=== PATIENT | female | born 1965 | race Two or more races ===

== ENCOUNTER 2018-08-13 11:44 | Inpatient (IN) | payer OTHER ==
[~2018-08-13] VITALS: Ht 167.6 cm; Wt 61.1 kg
--- NOTE | 2018-08-13 11:44 | NUR ---
BIB SELF W C/O FLU-LIKE SYMPTOMS: COUGH, HEADACHE, NAUSEA AND VOMITING X 10 DAYS. TO ER BED 2, HOOKED TO MONITOR, AWAITING MD WOO.
--- NOTE | 2018-08-13 12:28 | NUR ---
MAGDA STAFFORD AT BEDSIDE
[2018-08-13] MEDS ORDERED: HYDROMORPHONE INJ 0.5 MG/0.5 ML SYRINGE ONE (12:39)
[2018-08-13] MEDS ORDERED: ONDANSETRON HCL/PF 4 MG/2 ML VIAL ONE ×2 (12:39→15:05)
[2018-08-13 12:47] LABS: BASOPHILS % (AUTO) 0.2 % (0.0-2.0); EOSINOPHILS % (AUTO) 0.4 % (0.0-6.0); HEMATOCRIT 39 % (33-45); HEMOGLOBIN 13.1 g/dL (11.5-14.8); LYMPHOCYTES # (AUTO) 1.1 /CMM (0.8-4.8); LYMPHOCYTES % (AUTO) 16.1 % (20.0-44.0); MEAN CORPUSCULAR HGB CONC 34 g/dl (31.0-36.0); MEAN CORPUSCULAR VOLUME 91 fL (82-100); MONOCYTES # (AUTO) 0.5 /CMM (0.1-1.30); MONOCYTES % (AUTO) 7.8 % (2.0-12.0); NEUTROPHILS # (AUTO) 5.2 /CMM (1.8-8.9); NEUTROPHILS % (AUTO) 75.5 % (43.0-81.0); PLATELET COUNT (AUTO) 237 /CMM (150-450); RED BLOOD CELL COUNT(AUTO) 4.29 MIL/uL (4.0-5.2); WHITE BLOOD COUNT (AUTO) 6.8 K/uL (4.3-11.0)
[2018-08-13] MEDS ORDERED: ONDANSETRON HCL/PF 4 MG/2 ML VIAL IVP ONE ×2 (13:00→15:30)
[2018-08-13] MEDS ORDERED: IV NS 0.9% 1,000 ML BAG IV ONE ×2 (13:00→15:30)
[2018-08-13] MEDS ORDERED: HYDROMORPHONE INJ 2 MG/ML DISP.SYRIN IV ONE (13:00)
[2018-08-13 13:01] LABS: CALCIUM, SERUM 9.5 mg/dL (8.5-10.1); POTASSIUM 3.9 mmol/L (3.5-5.1)
[2018-08-13 13:04] LABS: ALBUMIN 3.3 g/dL (3.4-5.0); BILIRUBIN,DIRECT 0.1 mg/dL (0.0-0.2); BILIRUBIN,TOTAL 0.7 mg/dL (0.2-1.0); TOTAL PROTEIN, SERUM 7.6 g/dL (6.4-8.2)
--- NOTE | 2018-08-13 14:00 | NUR ---
PT BACK FROM CT ABDOMEN PELVIS
[2018-08-13 14:43] LABS: APPEARANCE,URINE Clear (CLEAR); BILIRUBIN,URINE MODERATE (NEGATIVE); BLOOD, URINE Negative Ery/uL (NEGATIVE); KETONES,URINE >=160 (NEGATIVE); LEUKOCYTE ESTERASE ,URINE Negative (NEGATIVE); NITRITE, URINE Negative (NEGATIVE); PH,URINE 5.5 (5.0-8.0); PROTEIN,URINE 100 mg/dl (NEGATIVE); UGLUCOSE Negative (NEGATIVE); UROBILINOGEN,URINE 0.2 EU/dL (0.2)
[2018-08-13 14:44] LABS: COLOR,URINE DARK YELLOW (YELLOW)
[2018-08-13 14:56] LABS: BACTERIA,URINE Few /HPF (None Seen); RBC,URINE 0-2 /HPF (0-2); SQUAMOUS EPITHELIAL CELL,UR Few /HPF (None Seen); WBC,URINE 0-4 /HPF (0-3)
--- NOTE | 2018-08-13 15:00 | NUR ---
PT WITH EPISODE OF VOMITING, MADE PA AWARE
--- NOTE | 2018-08-13 15:12 | NUR ---
OUT FOR CT HEAD
[2018-08-13] MEDS ORDERED: NERA40TA PO (16:33)
[2018-08-13] MEDS ORDERED: HALOPERIDOL LACTATE INJ 5 MG/ML VIAL IM ONE (17:00)
[2018-08-13] MEDS ORDERED: HALOPERIDOL LACTATE INJ 5 MG/ML VIAL ONE (17:05)
--- NOTE | 2018-08-13 18:31 | NUR ---
DR. DINORAH GILES
--- NOTE | 2018-08-13 18:47 | NUR ---
GOT BED 320-1
--- NOTE | 2018-08-13 18:56 | NUR ---
REPORT GIVEN TO KANDACE GILBERT OF [facility] FOR [facility]
[2018-08-13] MEDS ORDERED: Z GUARD REMEDY 2 OZ OINT TP PRN (19:30)
[2018-08-13] MEDS ORDERED: HYDROCODONE/APAP 5/325MG 1 EACH TABLET PO PRN (19:30)
[2018-08-13] MEDS ORDERED: MAGNESIUM HYDROXIDE 30 ML UDC PO PRN (19:30)
[2018-08-13] MEDS ORDERED: ONDANSETRON HCL/PF 4 MG/2 ML VIAL IVP PRN (19:30)
[2018-08-13] MEDS ORDERED: MAG HYDROX/AL HYDROX/SIMETH 30 ML UDC PO PRN (19:30)
[2018-08-13] MEDS ORDERED: ZOLPIDEM TARTRATE 5 MG TABLET PO PRN (19:30)
[2018-08-13] MEDS ORDERED: ACETAMINOPHEN 325 MG TABLET PO PRN (19:30)
[2018-08-13 19:45] VITALS: BP 143/77
--- NOTE | 2018-08-13 19:45 | NUR ---
RECEIVED PATIENT FROM ER FOR DX INTRACTABLE VOMITING/ HX OF BREAST CANCER. AO X 3, ABLE TO MAKE NEEDS KNOWN. NO ACUTE DISTRESS NOTED. DENIES ANY PAIN AT THIS TIME. DENIES N/V AT THIS TIME. PRODUCTIVE COUGH NOTED WITH SCANT SPUTUM. AFEBRILE. IV SITE PATENT, INTACT; FLUSHED. SKIN INTACT. SAFETY REMINDERS GIVEN. ORIENTATION TO ROOM AND UNIT GIVEN. ON LOW BED WITH BILATERAL UPPER SIDE RAILS UP. CALL COVARRUBIAS WITHIN EASY REACH. WILL CONTINUE TO MONITOR.
[2018-08-13] MEDS: PANTOPRAZOLE 40 MG VIAL IV SCH (20:20)
[2018-08-13] MEDS: IV D5/0.45 NACL 1,000 ML IV PRN (20:21)
[2018-08-13] MEDS: GUAIFENESIN/D-METHORPHAN HB 5 ML UDC PO PRN (23:49)
--- NOTE | 2018-08-14 06:00 | NUR ---
PATIENT ASLEEP, EASILY AROUSABLE. RESPIRATIONS EVEN. NO SIGNS OF PAIN NOTED. DUE MED GIVEN WITH NO ASE NOTED. GUAIFENESIN GIVEN EARLIER FOR COUGH WITH NO RELIEF. IVF INFUSING ORDERED. NEEDS ATTENDED. SAFETY PRECAUTIONS AND COMFORT MEASURES IN PLACE. WILL GIVE REPORT TO DAY SHIFT FOR CONTINUITY OF CARE.
--- NOTE | 2018-08-14 07:15 | NUR ---
MS RN Opening Notes 320-1 Patient awake, resting in bed. Alert and oriented x4. No complaints of nausea, vomitting or pain at this time. Respirations even and unlabored on room air, no acute distress noted. Peripheral IV to the right AC 20 gauge, intact, patent and infusing D5 1/2 NS at 75 mL/hr. Productive cough noted, treating with PRN medications. Full liquid diet at this time, tolerating okay. Updated patient on current plan of care and safety measures. Safety and fall precautions in place: bed in lowest and locked position, side rails up x2, bed alarm on, call light and personal possessions within reach. Patient verbalized understanding. Will continue to monitor and intervene as needed.
[2018-08-14 07:33] LABS: BASOPHILS % (AUTO) 0.1 % (0.0-2.0); EOSINOPHILS % (AUTO) 0.4 % (0.0-6.0); HEMATOCRIT 34 % (33-45); HEMOGLOBIN 11.4 g/dL (11.5-14.8); LYMPHOCYTES # (AUTO) 1.1 /CMM (0.8-4.8); LYMPHOCYTES % (AUTO) 16.8 % (20.0-44.0); MEAN CORPUSCULAR HGB CONC 34 g/dl (31.0-36.0); MEAN CORPUSCULAR VOLUME 90 fL (82-100); MONOCYTES # (AUTO) 0.7 /CMM (0.1-1.30); MONOCYTES % (AUTO) 11.1 % (2.0-12.0); NEUTROPHILS # (AUTO) 4.5 /CMM (1.8-8.9); NEUTROPHILS % (AUTO) 71.6 % (43.0-81.0); PLATELET COUNT (AUTO) 240 /CMM (150-450); RED BLOOD CELL COUNT(AUTO) 3.78 MIL/uL (4.0-5.2); WHITE BLOOD COUNT (AUTO) 6.3 K/uL (4.3-11.0)
[2018-08-14 07:48] LABS: THYROID STIMULATING HORMONE 1.168 uIU/mL (0.358-3.74)
[2018-08-14 07:59] LABS: CALCIUM, SERUM 8.7 mg/dL (8.5-10.1); CREATININE 0.9 mg/dL (0.6-1.3); MAGNESIUM 1.7 mg/dL (1.8-2.4); POTASSIUM 3.7 mmol/L (3.5-5.1)
[2018-08-14] MEDS: PANTOPRAZOLE 40 MG VIAL IV SCH (08:14)
[2018-08-14 08:15] VITALS: BP 124/73
[2018-08-14 08:26] VITALS: BP 124/73
[2018-08-14] MEDS: IV D5/0.45 NACL 1,000 ML IV PRN (10:19)
[2018-08-14] MEDS: Magnesium 1GM/D5W 100ML PREMIX 100 ML IV SCH ×2 (11:34→12:46)
[2018-08-14] MEDS: GUAIFENESIN/D-METHORPHAN HB 5 ML UDC PO PRN (11:34)
[2018-08-14] MEDS ORDERED: LOPERAMIDE HCL UDC(2 MG/10 ML) 2 MG/10 ML UDC PO PRN (12:00)
[2018-08-14] MEDS ORDERED: ONDA4TAB5 PO (12:46)
[2018-08-14] MEDS ORDERED: LOPE2CAP40 PO (12:46)
[2018-08-14 15:55] VITALS: BP 136/81
--- NOTE | 2018-08-14 16:30 | NUR ---
MS mechanical facilities technician Notes 320-1 Patient awake, resting in bed. Alert and oriented x4. No complaints of nausea, vomiting or pain at this time. Stable condition, vital signs stable. Respirations even and unlabored on room air, no acute distress noted. Ambulates with steady gait. Skin assessment completed, no skin issues noted upon assessment. Able to tolerate soldi food, no nausea or vomiting. Peripheral IV to the right AC 20 gauge, removed with catheter tip intact. No redness, swelling or bleeding of the site noted. Personal belongings discharged with patient, acknowledged and verified via signature on belongings form. Discharge instructions and Exitcare provided to patient, acknowledged and verified via signature on instructions form. Reviewed and emphasized medication changes with patient. Copies placed in chart. Patient accompanied to [facility] in wheelchair with staff member, RN, discharged home via private care with spouse.
== END 2018-08-14 16:23 | disposition home or self-care (01) | DRG 241 ==
LOC: ER 11:47 → MEDSG2 17:48 → MED 18:51
DX: K29.70 Gastritis, unspecified, without bleeding (principal); E83.42 Hypomagnesemia; D32.9 Benign neoplasm of meninges, unspecified; K21.9 Gastro-esophageal reflux disease without esophagitis; Z90.12 Acquired absence of left breast and nipple; Z85.3 Personal history of malignant neoplasm of breast; Z79.899 Other long term (current) drug therapy
CPT/HCPCS: 36415; 70450-TC; 71045-TC; 80048-TC; 80061-TC; 80076-TC; 81000-TC; 83690-TC; 83735-TC; 84100-TC; 84443-TC; 84703-TC; 85025-TC; 87081-TC; 87400; C9113; G0378; J1630; J2405; J3475; J3490; J7030

== ENCOUNTER 2020-12-19 09:05 | Emergency (ER) | payer OTHER ==
[~2020-12-19] VITALS: Ht 167.6 cm; Wt 62.6 kg
[~2020-12-19 09:05] MED LIST: LOPE2CAP40 PO; ONDA4TAB5 PO
--- NOTE | 2020-12-19 09:16 | NUR ---
RIGHT FALNL PAIN, STARTED YESTERDAY
[2020-12-19] MEDS ORDERED: KETOROLAC TROMETHAMINE INJ 30 MG/ML VIAL ONE (09:22)
[2020-12-19] MEDS ORDERED: KETOROLAC TROMETHAMINE INJ 60 MG/2 ML VIAL IM ONE (09:30)
--- NOTE | 2020-12-19 10:08 | NUR ---
urine collected and sent to lab
[2020-12-19] MEDS ORDERED: MORPHINE SULFATE INJ 4 MG/ML DISP.SYRIN ONE (10:11)
[2020-12-19 10:18] LABS: BILIRUBIN,URINE Negative (NEGATIVE); COLOR,URINE YELLOW (YELLOW); LEUKOCYTE ESTERASE ,URINE Negative (NEGATIVE); NITRITE, URINE Negative (NEGATIVE); PROTEIN,URINE Negative (NEGATIVE); UGLUCOSE Negative (NEGATIVE); UROBILINOGEN,URINE 0.2 EU/dL (0.2)
[2020-12-19] MEDS ORDERED: MORPHINE SULFATE INJ 2 MG/ML DISP.SYRIN IM ONE (10:30)
[2020-12-19 10:36] LABS: BACTERIA,URINE None seen /HPF (None Seen); SQUAMOUS EPITHELIAL CELL,UR Few /HPF (None Seen); WBC,URINE 0-2 /HPF (0-3)
[2020-12-19] MEDS ORDERED: IBUP-1953 PO (10:43)
[2020-12-19] MEDS ORDERED: HYDR-3976 GT (10:43)
--- NOTE | 2020-12-19 11:17 | NUR ---
Patient discharged to home in stable condition. Written and verbal after care instructions given. Patient verbalizes understanding of instruction.IV removed. Catheter intact and site benign. Pressure and 4x4 applied to site. No bleeding noted.
[2020-12-19 11:18] VITALS: BP 121/70
== END 2020-12-19 11:19 | disposition home or self-care (01) ==
LOC: ER 09:10
DX: M54.9 Dorsalgia, unspecified (principal); Z98.890 Other specified postprocedural states; Z79.899 Other long term (current) drug therapy
CPT/HCPCS: 81001; 96372 ×2; 99284; J1885; J2270

== ENCOUNTER 2021-02-01 08:59 | Emergency (ER) | payer OTHER ==
[~2021-02-01] VITALS: Ht 167.6 cm; Wt 60.8 kg
[~2021-02-01 08:59] MED LIST changes: +HYDR-3976 GT; +IBUP-1953 PO
[2021-02-01 09:13] VITALS: BP 119/60
--- NOTE | 2021-02-01 09:14 | NUR ---
TO ER BED 1, R EYE PAIN/PRESSURE AND REDNESS SINCE SATURDAY, AWAITING MD WOO
[2021-02-01] MEDS ORDERED: SULF15DR6 RIGHTEYE (09:49)
== END 2021-02-01 09:57 | disposition home or self-care (01) ==
LOC: ER 08:59
DX: H10.9 Unspecified conjunctivitis (principal); Z98.890 Other specified postprocedural states; Z79.899 Other long term (current) drug therapy

== ENCOUNTER 2023-06-01 14:58 | Emergency (ER) | payer OTHER ==
[~2023-06-01] VITALS: Ht 167.6 cm; Wt 61.2 kg
[~2023-06-01 14:58] MED LIST changes: +SULF15DR6 RIGHTEYE
[2023-06-01 15:25] VITALS: TEMP 98.7
[2023-06-01] MEDS ORDERED: diphenhydrAMINE HCL 50 MG/ML VIAL ONE (15:47)
[2023-06-01] MEDS ORDERED: PROCHLORPERAZINE EDISYLATE 10 MG/2 ML VIAL ONE (15:47)
[2023-06-01] MEDS ORDERED: diphenhydrAMINE HCL 50 MG/ML VIAL IV ONE (16:00)
[2023-06-01] MEDS ORDERED: IV NS 0.9% 500 ML BAG IV ONE (16:00)
[2023-06-01] MEDS ORDERED: PROCHLORPERAZINE EDISYLATE 10 MG/2 ML VIAL IVP ONE (16:00)
[2023-06-01] MEDS ORDERED: KETOROLAC TROMETHAMINE 15 MG/ML VIAL IV ONE (17:00)
[2023-06-01] MEDS ORDERED: KETOROLAC TROMETHAMINE 15 MG/ML VIAL ONE (17:26)
[2023-06-01 18:30] VITALS: BP 147/77; O2SAT 100
== END 2023-06-01 18:30 | disposition home or self-care (01) ==
LOC: ER 14:58
DX: G43.009 Migraine without aura, not intractable, without status migrainosus (principal); R10.2 Pelvic and perineal pain
CPT/HCPCS: 99285; 96374; 70450; 96375; 36415; 84702; J0780; J1200; J7040; J1885

== ENCOUNTER → 2024-11-20 | Emergency (ER) | payer OTHER | END | disposition left against medical advice (07) | LOC: ER 14:37 | DX: H92.09 Otalgia, unspecified ear (principal); Z53.21 Procedure and treatment not carried out due to patient leaving prior to being seen by health care provider ==